=== PATIENT | male | born 1965 | race African-American/Black ===

== ENCOUNTER 2018-12-19 02:02 | Emergency (ER) | payer SELFPAY ==
[2018-12-19 02:06] VITALS: BP 138/107
[2018-12-19] MEDS ORDERED: CYCL10TA29 PO ×2 (02:10→02:36)
--- NOTE | 2018-12-19 02:15 | ER Report ---
History and Physical Time Seen By MD: 02:11 Hx. of Stated Complaint: lower back pain for a day and a half HPI/ROS CHIEF COMPLAINT: low back pain HISTORY OF PRESENT ILLNESS: This is a 53 year old male. 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 Has intermittent episodes of this. The last few days with pain. Traveling here, from [place], and returning home in a few days. Has allergy to Toradol and will use Ibuprofen, but cautiously because of history of ulcer/gastritis problems with this. Uses occasional Flexeril. Sometimes has used hydrocodone as well. No problems with bowels or urination. No leg weakness. No saddle anesthesia. No fevers or chills. Allergies: Coded Allergies: ketorolac (Verified Allergy, Intermediate, 12/19/18) breathing issues Penicillins (Verified Adverse Reaction, Unknown, 12/19/18) vomiting Home Meds Active Scripts Hydrocodone Bit/Acetaminophen (HYDROCODON-ACETAMINOPHEN 5-325) 1 Each Tablet, 1 EACH PO Q4H PRN for PAIN, #10 TAB 0 Refills Prov:REYNOLD LOFTON MD 12/19/18 Cyclobenzaprine Hcl (CYCLOBENZAPRINE HCL) 10 Mg Tablet, 10 MG PO Q8H PRN for MUSCLE SPASMS, #10 TAB 0 Refills Prov:REYNOLD LOFTON MD 12/19/18 Reported Medications Cyclobenzaprine Hcl (CYCLOBENZAPRINE HCL) 10 Mg Tablet, 10 MG PO PRN, #9 TAB 12/19/18 Reviewed Nurses Notes: Yes Hx Substance Use Disorder: No Hx Alcohol Use: No Constitutional Vital Sign - Last 24 Hours 12/19/18 02:06 Temp 98.7 Pulse 94 Resp 14 B/P (MAP) 138/107 Pulse Ox 93 O2 Delivery Room Air Physical Exam General Appearance: The patient is alert, has no immediate need for airway pro tection and no current signs of toxicity. Eyes: Pupils equal and round no injection. ENT: Normal oral mucosa. Moist mucous membranes. Neuro: Normal sensation. Negative strait leg raise, no motor deficits. Musculoskeletal: Tender in lumbar midline and to the right with sciatica area pain on right as well. Skin: No rashes or lesions. DIFFERENTIAL DIAGNOSIS: After history and physical exam differential diagnosis was considered for low back pain, episodic, no red flag symptoms. Medical Decision Making ED Course/Re-evaluation ED Course Reviewed with patient and will provide Lortab and Flexeril for treatment and he will follow-up with his doctor at home in [place]. Decision to Disposition Date: Dec 19, 2018 Decision to Disposition Time: 02:31 Depart Departure Latest Vital Signs Vital Signs Date Time Temp Pulse Resp B/P (MAP) Pulse Ox O2 Delivery O2 Flow Rate FiO2 12/19/18 02:06 98.7 94 14 138/107 93 Room Air Impression: Primary Impression: Low back pain Condition: Improved Disposition: HOME OR SELF-CARE New Scripts Hydrocodone Bit/Acetaminophen (HYDROCODON-ACETAMINOPHEN 5-325) 1 Each Tablet 1 EACH PO Q4H PRN for PAIN, #10 TAB 0 Refills Prov: REYNOLD LOFTON MD 12/19/18 Cyclobenzaprine Hcl (CYCLOBENZAPRINE HCL) 10 Mg Tablet 10 MG PO Q8H PRN for MUSCLE SPASMS, #10 TAB 0 Refills Prov: REYNOLD LOFTON MD 12/19/18 Patient Instructions: Acute Low Back Pain (ED) Additional Instructions: Take Ibuprofen 200mg over the counter tablets, take 4 tablets every 8 hours as needed for pain. Take Lortab 5/325, one every 4 hours as needed for severe pain. Flexeril 10mg, one every 8 hours to help with muscle spasm and pain. Follow-up with your doctor back in [place] if not improving. Problem Qualifiers Primary Impression: Low back pain Chronicity: acute Back pain laterality: right Sciatica presence: with sciatica Sciatica laterality: sciatica of right side Qualified Codes: M54.41 - Lumbago with sciatica, right side REYNOLD LOFTON MD Dec 19, 2018 02:15
[2018-12-19] MEDS ORDERED: CYCLOBENZAPRINE HCL 10 MG TH PO ONE (02:35)
[2018-12-19] MEDS ORDERED: ACET/HYDROC 5/325MG TH ER ONLY 2 TAB/BOTTLE PO ONE (02:35)
[2018-12-19] MEDS ORDERED: LOR5/325 PO (02:36)
== END 2018-12-19 02:49 | disposition home or self-care (01) ==
LOC: ER 02:42
DX: M54.41 Lumbago with sciatica, right side (principal)
CPT/HCPCS: 99282